=== PATIENT | male | born 1995 | race Hispanic/Latino ===

== ENCOUNTER 2019-03-20 10:05 | Emergency (ER) | payer OTHER | END 2019-03-20 10:42 | disposition home or self-care (01) | LOC: EDH 10:05 | DX: K42.9 Umbilical hernia without obstruction or gangrene (principal) | CPT/HCPCS: 99281 ==

== ENCOUNTER → 2019-04-11 | Outpatient (CLI) | payer OTHER | END | disposition home or self-care (01) | LOC: RAH 04-10 10:41 | PROVIDERS: ATTEND Student in an Organized Health Care Education/Training Program | DX: K76.0 Fatty (change of) liver, not elsewhere classified (principal); N50.89 Other specified disorders of the male genital organs | CPT/HCPCS: 74176; 76870 ==